=== PATIENT | male | born 1970 | race Native Hawaiian/Other Pacific Islander ===

== ENCOUNTER 2019-12-16 10:57 | Outpatient (CLI) | payer BC | END 2019-12-16 23:57 | disposition home or self-care (01) | LOC: NM 10:57 | DX: R07.9 Chest pain, unspecified (principal) | CPT/HCPCS: A9500 ==

== ENCOUNTER 2021-02-05 10:30 | Outpatient (CLI) | payer BC | END 2021-02-05 21:20 | disposition home or self-care (01) | LOC: RAD 10:30 | PROVIDERS: ATTEND Nurse Practitioner Family | DX: R05.9 Cough, unspecified (principal) ==

== ENCOUNTER 2022-08-20 20:04 | Emergency (ER) | payer BC ==
[~2022-08-20] VITALS: Ht 193 cm; Wt 111.1 kg
[2022-08-20 20:04] VITALS: TEMP 97.7
[2022-08-20 20:22] LABS: PLATELET COUNT 188 K/uL (142-355)
[2022-08-20 20:32] LABS: POTASSIUM 3.6 mmol/L (3.6-5.2)
[2022-08-20 20:36] LABS: PARTIAL THROMBOPLASTIN TIME 33.7 SECONDS (23.9-36.7)
[2022-08-20 23:00] VITALS: BP 149/93
== END 2022-08-20 23:00 | disposition home or self-care (01) ==
LOC: ED 20:04
PROVIDERS: Internal Medicine
DX: I10 Essential (primary) hypertension (principal)
CPT/HCPCS: 36415; 80053; 82550; 84484; 85027; 85610; 85730; 93005; 99283